=== PATIENT | male | born 2000 | race Caucasian/White ===

== ENCOUNTER 2023-08-03 16:04 | Emergency (ER) | payer OTHER, SELFPAY ==
[2023-08-03 16:13] VITALS: BP 137/98; PULSE 102; RESP 18; TEMP 37.2; O2SAT 99; BMI 22.4
--- NOTE | 2023-08-03 16:43 | CRLHL7_ITS ---
For Patients: As a result of the Cures Act, medical imaging exams and procedure reports are released immediately into your electronic medical record. You may view this report before your referring provider. If you have questions, please contact your health care provider. HISTORY: Left knee pain. Trauma. TECHNIQUE: Three views of the left knee. COMPARISON: No prior. FINDINGS: No acute fracture or malalignment. No joint space narrowing. No significant degenerative change. No radiopaque foreign body or soft tissue gas. IMPRESSION: No fracture or malalignment. Dictated by Duy Gallardo MD @ 08/03/2023 6:17:48 PM Dictated by: Duy Gallardo MD @ 08/03/2023 18:17:51 (Electronically Signed)
--- NOTE | 2023-08-03 16:48 | ED.LOWEXIN ---
HPI - Extremity Injury (Lower) General Time Seen by Provider: 16:48 Date Seen: 08/03/23 Chief Complaint: Extremity Pain/Injury, Lower Stated Complaint: L knee injury, heard a pop Time Seen by Provider: 08/03/23 16:10 History of Present Illness HPI Narrative: This is a pleasant generally healthy 23-year-old male presenting to the ER today for left knee pain after a head injury while playing soccer yesterday. He plays soccer on the [employer] team. Yesterday he had a collision with another player. He is not exactly sure what happened but the apparently crashed into each other. He injured his left knee and fell to the ground. He is not sure if it was a direct trauma to the knee or possibly was twisted during the accident. He was initially sitting on the ground with his knee flexed. He weighs able to apply ice. Since then he has had knee pain. He notes that the pain is almost completely resolved when he is holding still and keeping his knee extended but he has a lot of pain if he tries to flex his knee more than about 45? or if he steps on it improperly or bends it wrong. He is really not able to bear much weight due to pain. He has been using barbed crutches. No injury to his right leg. No injury to his hip, thigh, quads, hamstring. No injury to his calf, lebron, ankle, or foot. No associated numbness or weakness in his foot. [facility] Social History Smoking Status: Current some day smoker What tobacco products do you use: cigarettes Do you use any of these nicotine containing products: E-Cigarettes Second hand tobacco smoke exposure: No How often do you have a drink containing alcohol: 2-3 times a week How many standard drinks containing alcohol do you have on a typical day: 1 or 2 How often do you have six or more drinks on one occasion: Less than monthly AUDIT-C Alcohol total score: 4 Non-prescribed substance use: denies use service: No Exam Narrative: Exam Narrative: Constitutional: Appears well-developed and well-nourished. Alert. Conversant. Non toxic. HENT: Head: Atraumatic. Nose: Nose normal. Mouth/Throat: Oral mucosa is clear and moist. no trismus. Eyes: Conjunctivae normal. EOM normal. Pupils equal, round, and reactive to light. No scleral icterus. Neck: Normal range of motion. Neck supple. No tracheal deviation present. Cardiovascular: Normal rate, regular rhythm. Symmetric DP pulses. Pulmonary/Chest: Effort normal. No stridor. No respiratory distress. Musculoskeletal: RUE: Normal range of motion. No tenderness. No deformity LUE: Normal range of motion. No tenderness. No deformity RLE: Normal range of motion. No edema. No tenderness. No deformity LLE: Normal in his hip, thigh, quadriceps, hamstring. No tenderness. No swelling. No bruising. No deformity. Inspection of the knee reveals an apparent knee effusion. There is no redness or warmth. No bruising. No obvious deformity. No definite bony tenderness over the patella, proximal fibula. Range of motion is limited from near full extension to about 45? of flexion, by pain. No definite locking or clicking. Ligamentous exam is limited by muscular guarding but I do think he has some laxity of the ACL when compared to the contralateral right knee. MCL, PCL, LCL cm solid. Tibial spine, ankle, foot, are normal. Normal range of motion. No edema. No tenderness. No deformity. Gastrocnemius and Achilles are nontender. Neurological: Alert and oriented to person, place, and time. Normal strength. CN II-VII intact. No sensory deficit. GCS eye subscore is 4. GCS verbal subscore is 5. GCS motor subscore is 6. Normal coordination Skin: Skin is warm and dry. No rash noted. No pallor. Normal capillary refill. Psychiatric: Normal mood. Normal affect. Const: Vital Signs, click to edit/add: Vital Signs - 24 hr 08/03/23 16:13 Temperature 99 F Pulse Rate [Pulse Oximeter] 102 H Respiratory Rate 18 Blood Pressure [Ri t Upper Arm] 137/98 H Pulse Oximetry 99 Oxygen Delivery Me thod Room Air Course Vital Signs Vital signs: Initial Vital Signs Temperature 99 F 08/03/23 16:13 Temperature Source Temporal Artery Scan 08/03/23 16:13 Pulse Rate 102 H 08/03/23 16:13 Pulse Rhythm Regular 08/03/23 16:13 Respiratory Rate 18 08/03/23 16:13 Blood Pressure 137/98 H 08/03/23 16:13 Blood Pressure Mean 111 H 08/03/23 16:13 Blood Pressure Position Sitting 08/03/23 16:13 Pulse Oximetry 99 09/25/23 16:13 Oxygen Delivery Method Room Air 08/03/23 16:13 Vital Signs Temperature 99 F 08/03/23 16:13 Pulse Rate 102 H 08/03/23 16:13 Respiratory Rate 18 08/03/23 16:13 Blood Pressure 137/98 H 08/03/23 16:13 Pulse Oximetry 99 08/03/23 16:13 Oxygen Delivery Method Room Air 08/03/23 16:13 Temperature 99 F 08/03/23 16:13 Pulse Rate 102 H 08/03/23 16:13 Respiratory Rate 18 08/03/23 16:13 Blood Pressure 137/98 H 08/03/23 16:13 Pulse Oximetry 99 08/03/23 16:13 Oxygen Delivery Method Room Air 08/03/23 16:13 MDM - Extremity Injury (Lower) MDM Narrative Medical decision making narrative: Very pleasant 23-year-old gentleman presents to the ER today with left knee pain after he suffered an injury while playing a college soccer match yesterday. He is having difficulty with weight-bearing and limited range of motion which raise concern for possible fracture. X-rays are obtained and are fortunately negative. He does have knee pain and I suspect possible ACL injury although mild ligamentous exam is limited by guarding. He also has a small palpable joint effusion. There is no redness or warmth to suggest a septic arthritis here. In this posttraumatic setting am concerned about possible hemarthrosis from injury. However at this point I think the risk of discomfort and introducing infection would outweigh the benefit of arthrocentesis. His joint is generally very stable. Nothing by history or physical to suggest a complete knee joint dislocation. He is neurovascularly intact in the leg. No evidence for compartment syndrome. Will place the patient into a knee immobilizer. He already has crutches. He will need close outpatient follow-up with orthopedics for re-evaluation and potential MRI. Discussed appropriate steps for any immobilization and protection until orthopedic follow-up. He is provided with a note for school so we can limit his distance of traveling on crutches. Questions answered. He feels comfortable managing his pain with Tylenol and ibuprofen. Precautions for return to the ER reviewed Imaging Data left knee xray: Attestation: I have reviewed the pertinent imaging results. Radiologist's impression: IMPRESSION: No fracture or malalignment. Discharge Plan Discharge Clinical Impression: Injury of knee, left Patient Disposition: Home, Self-Care Condition: Stable Instructions: ACL Injury (ED), Knee Immobilizer (ED) Additional Instructions: As we discussed, we are concerned that you may have injured 1 of the ligaments in your knee, such as or ACL. It is very important for you to use the knee brace and use crutches as needed. You should follow-up with the orthopedic clinic for recheck within the next 3-7 days for re-evaluation. Call the [facility] tomorrow to arrange your appointment. Call [phone]. If you have any worsening symptoms such as worsening pain or pain in your knee, numbness in your foot, discoloration of your foot or leg, or any other problems come back to the ER right away to be rechecked. Stand Alone Forms: [employer] Info Instructions
== END 2023-08-03 17:40 | disposition home or self-care (01) ==
LOC: ED 17:39
PROVIDERS: Emergency Provider Emergency Medicine
DX: M25.562 Pain in left knee (principal); X50.1XXA Overexertion from prolonged static or awkward postures, initial encounter; Y93.66 Activity, soccer
CPT/HCPCS: 73562; 99283

== ENCOUNTER 2023-08-19 08:41 | Day surgery (SDC) | payer OTHER, SELFPAY ==
[2023-08-19] VITALS (17 sets, daily range): BP systolic 101–139; BP diastolic 41–95; PULSE 59–88; RESP 12–20; TEMP 35.9–37.2; O2SAT 98–100; BMI 22.4
[2023-08-19] MEDS: SODIUM CHLORIDE 0.9 % (FLUSH) 10 ML SYRINGE IVF (09:25)
[2023-08-19] MEDS: LACTATED RINGERS 1000 ML 1,000 ML 100 ML IV (09:25)
[2023-08-19] MEDS: MIDAZOLAM HCL 1 MG/ML inj IVP (10:35)
[2023-08-19] MEDS: fentaNYL 100 MCG/2 ML inj IVP (10:35)
--- NOTE | 2023-08-19 10:51 | W.ANESCHARGE ---
Anesthesia Charges Start Date/Time Anesthesia Start Date: 08/19/23 Anesthesia Start Time: 11:03 Stop Date/Time Anesthesia Stop Date: 08/19/23 Anesthesia Stop Time: 14:29
--- NOTE | 2023-08-19 10:52 | P.NB_ITS ---
Nerve Block Nerve Block Time Seen by Provider: :42 Date Seen: 08/19/23 Type of block requested by surgeon for post-operative analgesia: popliteal Side: left Time out performed: Yes Verification of patient name: Yes Verification of date of : Yes Site marking: site marked Name of person performing procedure: William Assistants, if any: Mone Continuous monitoring Was continuous monitoring of O2 sat, B/P, residence hall director, recorded every 15 minutes?: Yes Procedure Checklist: sterile prep, needles and gloves Ultrasound guided. Images saved: Yes Medications given in 5ml increments after negative aspiration: Ropivicaine %: 0.5 mL: 20 Needle gauge: 22 Patient tolerated procedure well: Yes Additional comments: Needle noted adjacent to nerve Block Charges Block Charge (with Pro Fee): Sciatic Nerve Use of Ultrasound Machine for Block: Yes- US Guidance/pain block
--- NOTE | 2023-08-19 10:52 | P.NB_ITS ---
Nerve Block Nerve Block Time Seen by Provider: 10:42 Date Seen: 08/19/23 Type of block requested by surgeon for post-operative analgesia: femoral Side: left Time out performed: Yes Verification of patient name: Yes Verification of date of : Yes Site marking: site marked Name of person performing procedure: William Continuous monitoring Was continuous monitoring of O2 sat, B/P, library monitor, recorded every 15 minutes?: Yes Procedure Checklist: sterile prep, needles and gloves Ultrasound guided. Images saved: Yes Medications given in 5ml increments after negative aspiration: Ropivicaine %: 0.5 mL: 20 Needle gauge: 20 Decadron (mg): 10 Precedex (mcg): 25 Patient tolerated procedure well: Yes Additional comments: Needle noted adjacent to nerve Block Charges Block Charge (with Pro Fee): Femoral Nerve Use of Ultrasound Machine for Block: Yes- US Guidance/pain block
[2023-08-19] MEDS: CEFAZOLIN 2 GM in 0.9 % SODIUM CHLORIDE Mini-bag 100 ML IVPB (11:12)
--- NOTE | 2023-08-19 11:13 | W.ANESCHARGE ---
Anesthesia Charges Start Date/Time Anesthesia Start Date: 08/19/23 Anesthesia Start Time: 11:03 Stop Date/Time Anesthesia Stop Date: 08/19/23 Anesthesia Stop Time: 14:29
--- NOTE | 2023-08-19 11:38 | SUR.OPER ---
PATIENT QUESTIONS ANSWERED SATISFACTORILY PREOPERATIVELY.? PATIENT BROUGHT TO OR #2 PER CART AFTER THE BLOCK.? Patient positioned supine on OR #2 bed.? The perioperative?team supported arms bilaterally on arm boards.? Final approval of positioning by surgeon.? CONTINUOUS IRRIGATION OF THE RIGHT KNEE DURING THE PROCEDURE WITH NACL.
--- NOTE | 2023-08-19 11:43 | SUR.OPER ---
CONTINUOUS IRRIGATION OF THE RIGHT KNEE DURING THE PROCEDURE WITH NACL.
--- NOTE | 2023-08-19 14:04 | W.PM.H&PU ---
History & Physical Update History & Physical Update H&P Reviewed and patient assessed: No changes noted
--- NOTE | 2023-08-19 14:04 | PM.ORPRC ---
Procedure Note Date of procedure: 08/19/23 Procedure: PREOPERATIVE DIAGNOSIS: 1. Left knee ACL tear, acute, closed 2. Left knee lateral meniscus tear, acute, closed, complex posterior horn POSTOPERATIVE DIAGNOSIS: 1. Left knee ACL tear, acute, closed 2. Left knee lateral meniscus tear, acute, closed, complex posterior horn PROCEDURE: 1. Left knee arthroscopic ACL reconstruction with BTB autograft via independent anatomic tunnel drilling technique (low anteromedial portal) 2. Left knee arthroscopic lateral meniscus repair (all inside) of complex posterior horn tear - of note, 33% more time was needed for this complex lateral meniscus repair than is typical. It needed more suture and repassing of sutures due to some regions of poor integrity tissue (near the tear site), but also more assistants and hands to make repair possible SURGEON: Abhilash Verde M.D. FISHER TERRAPIN: Karri CHACKO. Of note, an chiropractic assistant was critical for this case to aid in patient positioning, knee manipulation, instrument exchange, graft preparation, camera manipulation, and closure. ANESTHESIA: Spinal plus femoral nerve block EBL: 100 mL TOURNIQUET: 130 minutes at 300 torr IMPLANTS: Arthrex a 8 x 20 mm BioComposite interference screw for femoral tunnel and 7 x 20 mm screw for tibial fixation. Finally, single 4.75 mm peek SwiveLock suture anchor utilized for backing up the tibial portion. Mohinder (x3) for meniscus repair COMPLICATIONS: None evident INDICATIONS: The patient is a pleasant 23-year-old male. They have experienced a left knee injury resulting in knee instability. MRI was obtained and confirmed complete ACL disruption, consistent with the physical exam. The MRI also suggested lateral meniscus tear and possible posterior meniscus capsular sprain. Given the findings, as well as the patient's desire to remain physically active with cutting/pivoting type activities, surgery was recommended. FINDINGS: Exam under anesthesia revealed positive Debra's showing grade 2 B. Slight clunk pivot shift. Negative posterior drawer. Stable to varus and valgus stress at 0 and 30?. Range of motion we did not achieve full extension locked at approximately 10? with flexion beyond 100. The diagnostic arthroscopy showed complete ACL disruption mid substance with tibial fibers fallen into the anterior lateral compartment region and femoral connected fibers fallen posterior to the PCL near the posterior lateral compartment. There is also complex tearing of the posterior horn lateral meniscus. Discussed ended approaching the posterior horn/midbody junction towards the posterior root. It had a significant radial component that penetrated approximately 80% of the depth of the meniscus and then delaminated in a vertical pattern towards the root. The flap fragment easily displaced into the posterior lateral compartment. The remaining posterior horn tissue had a slight split in a vertical pattern not all the way to the corner of the midbody posterior horn junction. There was significant hemorrhage on the tissue, the unstable flap near the posterior root, but the tissue quality was good. [place] to be worthy of repair. The medial meniscus was intact without disruption from the posterior capsule. The articular cartilage was healthy in all 3 compartments. No loose bodies evident otherwise.. DESCRIPTION OF PROCEDURE: After a thorough discussion of risks, benefits, and alternatives, the patient was brought to the operating room and placed upon the operating table. Induction of anesthesia was undertaken as previously noted. 2 g IV Ancef was administered within 1 hr of incision preoperatively. Appropriate time-out was performed identifying proper patient, site, and procedure. The left lower extremity was prepped and draped in the appropriate sterile fashion using ChloraPrep. The limb was exsanguinated and tourniquet inflated. Anterolateral and anteromedial portals were established with an 11 blade, and a diagnostic arthroscopy was performed. This identified the findings as noted above. Following the diagnostic arthroscopy, attention was turned to harvesting of the BTB autograft. A longitudinal midline skin incision was made from the inferior pole patella to the tibial tubercle. Sharp incision through skin and through subcutaneous tissue allowed identification of the paratenon. After clearing from the subcutaneous tissue, this was sharply divided, and freed from the deep tendon. We harvested the central 10 mm including a 10 x 21 mm bone block from the patella and the tibial tubercle. The graft was then prepared on the back table and sized to be a 10 mm graft. While the graft was being prepared, we completed the lateral meniscus repair. The Novostitch device was passed and hay bale fashion 1st on the portion closer to the popliteus. A 2nd passage was similar to this on portion closer to the root. A meniscus scorpion allowed passage of a 2-0 FiberWire again further posterior near the root connecting the capsule to the meniscus flap. Then finally, a 3rd Novostitch was utilized in a Hal-Bassam manner to help reapproximate the flap to the main portion of posterior horn near the popliteus so as not to have it gap at radial tear site. Following this, the remaining ACL stump was debrided with a combination of shaver and basket forceps. After evaluating the current fibers of the existing ACL stump, we drilled the tunnels in an independent manner for anatomic tunnel positioning. A 10 mm femoral tunnel using a 6 mm offset guide on the lateral femoral condyle wall with knee in hyperflexion was used. A low anteromedial portal was utilized for this for to complete anatomic, independent tunnel drilling. The tibial tunnel was localized with a guide pin. After confirming proper location, the guide pin was exchanged for the coring reamer pin. The tunnel was drilled with a coring Reamer with eventual utilization of the bone core for filling of the patellar and tibial tubercle defects at the end of the case. After preparing the graft and drilling tunnels, the graft was passed without difficulty, a guide pin was placed which pushed the bone block proximal. A 7 mm tap was followed by an 8 x 20 mm BioComposite interference screw. The knee was then cycled 35+ times with tension on the graft. A guide pin was placed in the tibial tunnel and a 7 mm tap followed by an 7 x 20 mm screw was utilized. Excellent tension on the graft was achieved. The fixation was secured with the knee in subtle flexion. As the tibial bone block was small the expect (13 mm in length) which shows the back of the tibial side with a SwiveLock suture anchor. A Debra test was performed again, and found to be stable. The graft was reprobed on the inside of the knee and again found to be taut and stable. The knee range of motion was full without graft disruption or bone block movement. At this stage, closure was performed with 0 Vicryl closing the tendon adjacent to the bone harvest, and the core was utilized to fill both the patellar and tibial tubercle bony defects. Then, 0 Vicryl was utilized in a running, locking fashion to close the paratenon. Finally, 2-0 Vicryl and 4-0 Monocryl to close the subcutaneous and subcuticular layers, respectively. Dressings were applied, tourniquet deflated, the patient awoken from anesthesia and transferred to the PACU in stable condition. Of note, 33% more time was needed for this complex lateral meniscus repair than is typical. It needed more suture and repassing of sutures due to some regions of poor integrity tissue (near the tear site), but also more assistants and hands to make repair possible. PLAN: 1. Toe-touch weightbear operative extremity. Crutch / walker ambulation assistance PRN under quad control present; then advance to WBAT. 2. Ice, acetominophen and/or ibuprofen, and oxycodone for pain as needed. 3. Knee range of motion and quad sets/straight leg raise regularly, guided by physical therapy. 4. Follow up with PA visit in 1-2 weeks for a wound check.
--- NOTE | 2023-08-19 14:25 | W.PM.NB ---
Nerve Block Nerve Block Time Seen by Provider: 10:42 Date Seen: 08/19/23 Type of block requested by surgeon for post-operative analgesia: femoral Side: left Time out performed: Yes Verification of patient name: Yes Verification of date of : Yes Site marking: site marked Name of person performing procedure: William Assistants, if any: Mone Continuous monitoring Was continuous monitoring of O2 sat, B/P, utility worker film processing, recorded every 15 minutes?: Yes Procedure Checklist: sterile prep, needles and gloves Ultrasound guided. Images saved: Yes Medications given in 5ml increments after negative aspiration: Ropivicaine %: 0.5 mL: 20 Needle gauge: 20 Decadron (mg): 10 Precedex (mcg): 25 Patient tolerated procedure well: Yes Additional comments: Needle noted adjacent to nerve Block Charges Block Charge (with Pro Fee): Femoral Nerve Use of Ultrasound Machine for Block: Yes- US Guidance/pain block
[2023-08-19] MEDS: MEPERIDINE 25 MG/ML INJ 12.5 MG IVP ×2 (14:35→14:47)
[2023-08-19] MEDS: diphenhydrAMINE 50 MG/ML inj 25 MG IVP (14:49)
--- NOTE | 2023-08-19 16:29 | SUR.PHASEII ---
Pt tolerated water, pudding. Pt voided x 2. Pt ambulated with crutches to restrooom. Pt and father verbalized understanding of discharge instructions. Patient and father verbalized readiness to be discharged. Patient discharged per wheelchair.
== END 2023-08-19 16:29 | disposition home or self-care (01) ==
PROVIDERS: PCP Internal Medicine; Visit Provider Orthopaedic Surgery Sports Medicine
PROC: (CPT 29888; principal; 2023-08-19 10:45)
DX: S83.512A Sprain of anterior cruciate ligament of left knee, initial encounter (principal); S83.272A Complex tear of lateral meniscus, current injury, left knee, initial encounter; G89.18 Other acute postprocedural pain
CPT/HCPCS: 29888; 29882; 01400; 64445; 64447; 76942; C1713; J0690; J1100; J1200; J2175; J2250; J2405; J2704; J2795; J3010; J7120; L1833